=== PATIENT | male | born 1960 | race Caucasian/White ===

== ENCOUNTER → 2018-06-28 | Outpatient (CLI) | payer OTHER ==
[~2018-06-28] MED LIST: LIDOCAINE-MPF 1%, 5ML ONE
== END | disposition home or self-care (01) ==
LOC: RAD 08:13
PROVIDERS: ATTEND Nurse Practitioner Primary Care
DX: E04.1 Nontoxic single thyroid nodule (principal)
CPT/HCPCS: 10022; 76942; 88172; 88173

== ENCOUNTER 2020-03-12 06:43 | Emergency (ER) | payer OTHER ==
[~2020-03-12] VITALS: Ht 182.9 cm; Wt 84.2 kg
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
[2020-03-12] MEDS ORDERED: PROMETHAZINE 25 MG/ML, 1ML ONE (06:56)
[2020-03-12] MEDS ORDERED: PROMETHAZINE 25 MG/ML, 1ML IM ONE (07:00)
--- NOTE | 2020-03-12 07:01 | NUR ---
REPORT FROM NEIL
--- NOTE | 2020-03-12 07:30 | NUR ---
PT BACK FROM IMAGING. POC TO PROCEDURAL SEDATE AND REDUCE RIGHT ANKLE.
[2020-03-12] MEDS ORDERED: PROPOFOL 10 MG/ML, 20ML ONE (07:59)
[2020-03-12] MEDS ORDERED: KETAMINE 10 MG/ML, 20ML ONE (08:00)
[2020-03-12] MEDS ORDERED: ETOMIDATE 20 MG/10 ML ONE (08:08)
[2020-03-12] MEDS ORDERED: ETOMIDATE 40 MG/20 ML IVPush ONE (08:30)
--- NOTE | 2020-03-12 08:41 | NUR ---
PT TOLERATED PROCEDURAL SEDATION. 10 MG ETOMIDATE ADMIN BY . PT DID HAVE 1 EPISODE OF EMESIS DURING SEDATION. SUCTIONED NEEDED. ANKLE REDUCED AND WRAPPED. WILL CONTINUE TO MONITOR PT .
[2020-03-12 08:53] LABS: BASOPHILS # (AUTO) 0.02 x10^3/uL (0-0.1); BASOPHILS % (AUTO) 0 % (0-1); EOSINOPHILS # (AUTO) 0.13 x10^3/uL (0-0.4); EOSINOPHILS % (AUTO) 2 % (1-7); LYMPHOCYTES # (AUTO) 0.67 x10^3/uL (1-3.4); LYMPHOCYTES % (AUTO) 9 % (22-44); MD NO; MEAN CORPUSCULAR HEMOGLOBIN 29.8 pg (27.5-34.5); MEAN CORPUSCULAR HGB CONC 32.4 g/dL (33.2-36.2); MEAN PLATELET VOLUME 7.9 fL (7.4-10.4); MONOCYTES % (AUTO) 7 % (2-9); NEUTROPHILS # (AUTO) 6.28 x10^3/uL (1.8-6.8); NEUTROPHILS % (AUTO) 83 % (42-75); PLATELET COUNT 162 x10^3/uL (130-400); RED BLOOD COUNT 4.82 x10^6/uL (4.38-5.82)
[2020-03-12] MEDS ORDERED: KETAMINE 100 MG/ML, 5ML IVPush ONE (09:00)
[2020-03-12] MEDS ORDERED: PROPOFOL 10 MG/ML, 100ML IV ONE (09:00)
[2020-03-12 09:06] LABS: ALANINE AMINOTRANSFERASE 37 U/L (12-78); ALBUMIN 4.1 g/dL (3.4-5.0); ANION GAP 8 mmol/L (5-15); CHLORIDE 106 mmol/L (98-107); CREATININE 0.99 mg/dL (0.7-1.3)
[2020-03-12 09:08] LABS: ALKALINE PHOSPHATASE 67 U/L (45-117); BILIRUBIN,TOTAL 1.5 mg/dL (0.2-1.0); TOTAL PROTEIN 7.3 g/dL (6.4-8.2)
--- NOTE | 2020-03-12 09:40 | NUR ---
pt given urinal. vss.
[2020-03-12] MEDS ORDERED: OXYcodone/APAP 5/325MG TABLET ONE (09:57)
[2020-03-12] MEDS ORDERED: OXYcodone/APAP 10/325MG TABLET ONE (10:10)
[2020-03-12 10:13] VITALS: BP 162/97
--- NOTE | 2020-03-12 10:14 | NUR ---
medicated for pain, given crackers and water. pt to be dc soon
[2020-03-12] MEDS ORDERED: OXYcodone/APAP 10/325MG TABLET PO ONE (10:30)
--- NOTE | 2020-03-12 10:44 | NUR ---
Patient/Caregiver given discharge instructions and they have confirmed that they understand the instructions. Patient ambulatory with steady gait.
== END 2020-03-12 10:59 | disposition home or self-care (01) ==
LOC: ED 08:57
DX: Z03.818 Encounter for observation for suspected exposure to other biological agents ruled out (principal); S82.841A Displaced bimalleolar fracture of right lower leg, initial encounter for closed fracture; Z20.828 Contact with and (suspected) exposure to other viral communicable diseases; R94.31 Abnormal electrocardiogram [ECG] [EKG]; E03.9 Hypothyroidism, unspecified; E11.9 Type 2 diabetes mellitus without complications; E78.00 Pure hypercholesterolemia, unspecified; W01.0XXA Fall on same level from slipping, tripping and stumbling without subsequent striking against object, initial encounter; Y93.89 Activity, other specified; Y92.098 Other place in other non-institutional residence as the place of occurrence of the external cause; Y99.8 Other external cause status
CPT/HCPCS: 27818; 36415; 71045; 73590; 73600; 80053; 85025; 87635; 93005; 96372; 99152; 99285; J2550

== ENCOUNTER 2020-03-17 07:00 | Day surgery (SDC) | payer OTHER ==
[~2020-03-17] VITALS: Ht 182.9 cm; Wt 90.0 kg
[2020-03-17] MEDS ORDERED: CHLORHEXIDINE 15 ML UDC ONE (07:43)
[2020-03-17] MEDS ORDERED: LACTATED RINGERS 1,000 ML IV SCH (07:45)
[2020-03-17 07:46] VITALS: BP 121/80
[2020-03-17] MEDS ORDERED: OXYC-302 PO (07:56)
[2020-03-17] MEDS ORDERED: IBUP-1840 PO (07:56)
[2020-03-17] MEDS ORDERED: DULA1.5P SQ (07:56)
[2020-03-17] MEDS ORDERED: OMEP-110 PO (07:59)
[2020-03-17] MEDS ORDERED: LOVA10TA PO (07:59)
[2020-03-17] MEDS ORDERED: GLIP5TAB10 PO (07:59)
[2020-03-17] MEDS ORDERED: METF500T17 PO (07:59)
[2020-03-17] MEDS ORDERED: LEVO100T5 PO (07:59)
[2020-03-17] MEDS ORDERED: CHLORHEXIDINE 15 ML UDC MM ONE (08:00)
[2020-03-17] MEDS ORDERED: MIDAZOLAM 1 MG/ML, 2ML ONE (08:23)
[2020-03-17] MEDS ORDERED: EPINEPHRINE 1 MG/ML, 1ML ONE (08:51)
[2020-03-17] MEDS ORDERED: BUPIVACAINE/PF 0.5% ONE (08:51)
[2020-03-17] MEDS ORDERED: PROPOFOL 10 MG/ML, 100ML IV ONE (08:59)
[2020-03-17] MEDS ORDERED: ONDANSETRON 2MG/ML, 2ML ONE (08:59)
[2020-03-17] MEDS ORDERED: CEFAZOLIN PMX 1GM/50ML ONE (08:59)
[2020-03-17] MEDS ORDERED: PHENYLEPHRINE 10 MG/ML ONE (08:59)
[2020-03-17] MEDS ORDERED: PROMETHAZINE 25 MG/ML, 1ML IVPush PRN (09:30)
[2020-03-17] MEDS ORDERED: OXYcodone 5 MG/5 ML ORAL.SOL UDC PO PRN (09:30)
[2020-03-17] MEDS ORDERED: HYDROmorphone 1 MG/ML, 1ML INJ IVPush PRN (09:30)
[2020-03-17] MEDS ORDERED: ACETAMINOPHEN 325 MG TABLET PO PRN (09:30)
[2020-03-17] MEDS ORDERED: LABETALOL 5MG/ML, 20ML IV PRN (09:30)
[2020-03-17] MEDS ORDERED: PROMETHAZINE 25 MG/ML, 1ML ONE (10:24)
[2020-03-17] MEDS: FENTANYL PF 100 MCG/2ML IV PRN ×2 (10:26→10:31)
[2020-03-17] MEDS ORDERED: FENTANYL PF 100 MCG/2ML ONE (10:28)
== END 2020-03-17 13:20 | disposition home or self-care (01) ==
LOC: OUT 07:00
PROVIDERS: ATTEND Orthopaedic Surgery
DX: S82.851A Displaced trimalleolar fracture of right lower leg, initial encounter for closed fracture (principal); G89.18 Other acute postprocedural pain; E11.9 Type 2 diabetes mellitus without complications; I10 Essential (primary) hypertension; E78.5 Hyperlipidemia, unspecified; K21.9 Gastro-esophageal reflux disease without esophagitis; Z79.899 Other long term (current) drug therapy; X50.1XXA Overexertion from prolonged static or awkward postures, initial encounter; Y93.89 Activity, other specified; Y92.89 Other specified places as the place of occurrence of the external cause; Y99.8 Other external cause status
CPT/HCPCS: 27822; 64445; 64447; 73600; 76000; 82962; C1713; J0171; J0690; J2250; J2370; J2405; J2550; J2704; J3010; J7120